=== PATIENT | female | born 1945 | race Hispanic/Latino ===

== ENCOUNTER 2018-10-08 07:48 | Outpatient (CLI) | payer BC | END 2018-10-08 07:49 | disposition home or self-care (01) | LOC: C.MAMMO 07:49 | DX: Z12.31 Encounter for screening mammogram for malignant neoplasm of breast (principal) ==

== ENCOUNTER 2018-10-22 12:13 | Outpatient (CLI) | payer BC | END 2018-10-22 12:14 | disposition home or self-care (01) | LOC: C.MAMMO 12:13 | DX: R92.8 Other abnormal and inconclusive findings on diagnostic imaging of breast (principal) ==

== ENCOUNTER 2018-10-30 13:05 | Outpatient (CLI) | payer BC | END 2018-10-30 13:06 | disposition home or self-care (01) | LOC: C.SPRAD 13:05 ==